=== PATIENT | male | born 2000 | race Caucasian/White ===

== ENCOUNTER 2020-04-18 13:52 | Emergency (ER) | payer OTHER ==
[~2020-04-18] VITALS: Ht 180.3 cm; Wt 88.5 kg
[2020-04-18] MEDS ORDERED: CETAPHIL MOIST473 ML TOP (16:21)
[2020-04-18] MEDS ORDERED: [UNRECOGNIZED DRUG - OTHER] TOP (16:21)
== END 2020-04-18 16:00 | disposition home or self-care (01) ==
LOC: ER 13:52
DX: L55.0 Sunburn of first degree (principal)